=== PATIENT | male | born 1985 | race Caucasian/White ===

== ENCOUNTER 2018-07-30 11:16 | Emergency (ER) | payer OTHER ==
[2018-07-30 11:22] VITALS: BP 153/62
[2018-07-30 12:30] LABS: BASOPHILS # (AUTO) 0.1 10^3/uL (0.0-0.1); BASOPHILS % (AUTO) 1.5 %; EOSINOPHILS # (AUTO) 0.2 10^3/uL (0.0-0.7); EOSINOPHILS % (AUTO) 2.4 %; HGB - HEMOGLOBIN 15.5 g/dL (14.0-18.0); LYMPHOCYTES # (AUTO) 1.6 10^3/uL (1.5-3.5); LYMPHOCYTES % (AUTO) 23.6 %; MEAN CORPUSCULAR HEMOGLOBIN 28.7 pg (27.0-31.0); MEAN CORPUSCULAR HGB CONC 33.4 g/dL (32.0-36.0); MEAN CORPUSCULAR VOLUME 85.9 fL (80.0-94.0); MEAN PLATELET VOLUME 8.8 fL (7.4-11.4); MONOCYTES # (AUTO) 0.4 10^3/uL (0.0-1.0); MONOCYTES % (AUTO) 5.6 %; NEUTROPHILS # (AUTO) 4.5 10^3/uL (1.5-6.6); NEUTROPHILS % (AUTO) 66.9 %; PLT - PLATELET COUNT 234 10^3/uL (130-450); RED CELL DISTRIBUTION WIDTH 13.8 % (12.0-15.0); WHITE BLOOD COUNT 6.7 x10^3/uL (4.8-10.8)
--- NOTE | 2018-07-30 12:30 | ED Physician Documentation ---
PD HPI GI BLEED - Stated complaint Stated Complaint: BLOODY STOOL - Chief complaint Chief Complaint: Abd Pain - History obtained from History obtained from: Patient - History of Present Illness Timing - onset: Yesterday Timing - duration: Minutes Timing - details: Abrupt onset, Now resolved Associated symptoms: BRBPR Contributing factors: No: Sick contact, Bad food Worsened by: Other (BM) Similar symptoms before: Has not had sx before Recently seen: Not recently seen - Additional information Additional information: Previously well 32-year-old male states that yesterday he had a bowel movement and with that he had some blood on the toilet paper. He does not remember having a hard stool or any kind of a mass that he felt on his rectum. This morning again after bowel movement the patient noted a fair amount of blood in the commode and he had a wipe about 5 times before he got down to having only a drop of blood on the paper. He has not had further blood output since. Review of Systems Constitutional: denies: Fever Eyes: denies: Decreased vision Ears: denies: Ear pain Nose: denies: Congestion Throat: denies: Sore throat Respiratory: denies: Cough GI: reports: Bloody / black stool. denies: Abdominal Pain, Nausea, Vomiting, Constipation, Diarrhea : denies: Dysuria, Frequency PD PAST MEDICAL HISTORY - Present Medications Home Medications: Ambulatory Orders Medication Instructions Recorded Confirmed No Known Home Medications 07/30/18 07/30/18 - Allergies Allergies/Adverse Reactions: Allergies Allergy/AdvReac Type Severity Reaction Status Date / Time No Known Drug Allergies Allergy Verified 07/30/18 11:22 PD ED PE NORMAL - Vitals Vital signs reviewed: Yes (hypertensive ) - General General: Alert and oriented X 3, No acute distress, Well developed/nourished - HEENT HEENT: Atraumatic, PERRL, EOMI - Respiratory Respiratory: No respiratory distress - Rectal Rectal: No: Other (no external hemorrhoids + internal without thrombosis. 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, No motor deficit, No sensory deficit, Normal speech Eye Opening: Spontaneous Motor: Obeys Commands Verbal: Oriented GCS Score: 15 - Psych Psych: Normal mood, Normal affect Results - Vitals Vitals: Vital Signs - 24 hr 07/30/18 11:20 Temperature 36.5 C Heart Rate 86 Respiratory 17 Rate Blood Pressure 153/62 H O2 Saturation 99 Oxygen O2 Source Room air - Labs Labs: Laboratory Tests 07/30/18 07/30/18 12:26 12:26 WBC 6.7 RBC 5.40 Hgb 15.5 Hct 46.4 MCV 85.9 MCH 28.7 MCHC 33.4 RDW 13.8 Plt Count 234 MPV 8.8 Neut # (Auto) 4.5 Lymph # (Auto) 1.6 [place] # (Auto) 0.4 Eos # (Auto) 0.2 Baso # (Auto) 0.1 Absolute Nucleated RBC 0.00 Nucleated RBC % 0.0 Sodium 137 Potassium 4.2 Chloride 101 Carbon Dioxide 27 Anion Gap 9.0 BUN 17 Creatinine 1.0 Estimated GFR (MDRD) 88 L Glucose 97 Calcium 9.9 Total Bilirubin 0.5 AST 25 ALT 34 Alkaline Phosphatase 44 Total Protein 7.9 Albumin 4.7 Globulin 3.2 Albumin/Globulin Ratio 1.5 Lipase 47 PD MEDICAL DECISION MAKING - ED course Complexity details: reviewed results, re-evaluated patient, considered differential, d/w patient ED course: 32 y/o male with acute BRBPR has swollen internal hemorrhoids and normal blood counts. Departure - Departure Disposition: 01 Home, Self Care Clinical Impression: Internal hemorrhoid, bleeding Condition: Stable Instructions: ED Hematochezia Stable, ED Hemorrhoids Follow-Up: ISHA Huggins [Provider Group]
[2018-07-30 12:42] LABS: ALBUMIN 4.7 g/dL (3.2-5.5); ALBUMIN/GLOBULIN RATIO 1.5 (1.0-2.2); BILIRUBIN,TOTAL 0.5 mg/dL (0.2-1.0); CALCIUM 9.9 mg/dL (8.5-10.3); TOTAL PROTEIN 7.9 g/dL (6.7-8.2)
== END 2018-07-30 12:50 | disposition home or self-care (01) ==
LOC: ED 11:16
DX: K64.8 Other hemorrhoids (principal)
CPT/HCPCS: 36415; 80053; 83690; 85025; 99282; 99283